=== PATIENT | male | born 1950 | race Caucasian/White ===

== ENCOUNTER 2019-06-27 05:43 | Day surgery (SDC) | payer MEDICARE, OTHER ==
[2019-06-26 13:39] VITALS: BMI 39.5
[2019-06-27] MEDS ORDERED: Phenylephrine 2.5% Ophth Soln 5 ML BOT ONE (06:02)
[2019-06-27] MEDS ORDERED: Cyclopentolate 1% Opth Drop 2 ML BOT ONE (06:02)
[2019-06-27] MEDS ORDERED: DEXAMETHASONE FS SCH (06:30)
[2019-06-27] MEDS ORDERED: PROPOFOL 20 ML ONE (06:38)
[2019-06-27] MEDS ORDERED: Fentanyl 100 MCG/2 ML VIAL ONE (06:38)
[2019-06-27] MEDS ORDERED: Midazolam HCl 2 mg/2 ml Vial ONE (06:38)
--- NOTE | 2019-06-27 09:02 | OP ---
DATE OF PROCEDURE: 06/27/2019 PREOPERATIVE DIAGNOSIS: Macular edema, left eye. POSTOPERATIVE DIAGNOSIS: Macular edema, left eye. PROCEDURE PERFORMED: Intravitreal injection of Ozurdex, left eye. ANESTHESIA: Local monitored anesthesia care. PROCEDURE IN DETAIL: The patient was identified in the preoperative holding area. Appropriate informed consent for the planned surgical procedure on the left eye had been obtained. The patient was transported to the operative suite, where appropriate cardiopulmonary monitoring was established. Local anesthesia was obtained using topical drops. The patient was prepped with 5% Betadine. Ozurdex was injected into the eye without complication. The eye was cleaned and antibiotic ointment was inserted to the eye and the patient was taken to postoperative recovery unit in good condition, having suffered no immediate perioperative complications. The patient was instructed to apply drops to the eye for today and follow up via telephone and with followup appointment on the . Job ID: [id number]
[2019-06-27] MEDS ORDERED: Dexamethasone 0.7 MG IMPLANT IO SCH (12:45)
== END 2019-06-27 08:05 | disposition home or self-care (01) ==
LOC: SDC 05:43
PROVIDERS: ATTEND Ophthalmology Retina Specialist
PROC: 3E0C3GC Introduction of Other Therapeutic Substance into Eye, Percutaneous Approach (ICD-10-PCS; principal; 2019-06-27)
DX: E11.3412 Type 2 diabetes mellitus with severe nonproliferative diabetic retinopathy with macular edema, left eye (principal)
CPT/HCPCS: 67028; 82962; J7312; 36416; J2250; J2704; J3010